=== PATIENT | female | born 1950 | race Caucasian/White ===

== ENCOUNTER → 2016-07-18 | Outpatient (CLI) | payer MEDICARE, OTHER ==
--- NOTE | 2016-07-19 14:52 | MAM ---
History: Well woman exam. Date of exam: 07/18/2016 Services provided: Bilateral full field digital screening mammography. CAD, the images were reviewed with R2 computer aided detection. FINDINGS: Glandular tissue is scattered glandular contour with increased mammographic density. Comparison with 2015 exam. No dominant mass, architectural distortion or clustered microcalcification. IMPRESSION: Benign exam Recommendation: Routine annual mammography BIRAD CATEGORY: 2 BENIGN Electronically signed by: Samantha Darling MD 07/19/2016 2:52 PM CDT Workstation: [id number]
== END | disposition home or self-care (01) ==
LOC: MAMMO 10:11
PROVIDERS: ATTEND Family Medicine
DX: Z12.31 Encounter for screening mammogram for malignant neoplasm of breast (principal)

== ENCOUNTER → 2016-12-10 | Outpatient (CLI) | payer MEDICARE, OTHER | END | disposition home or self-care (01) | LOC: LAB.O 16:32 | PROVIDERS: ATTEND Nurse Practitioner Family | DX: R41.0 Disorientation, unspecified (principal); R41.1 Anterograde amnesia ==

== ENCOUNTER → 2017-01-09 | Outpatient (CLI) | payer MEDICARE, OTHER | END | disposition home or self-care (01) | LOC: LAB.O 09:14 | PROVIDERS: ATTEND Orthopaedic Surgery | DX: Z01.818 Encounter for other preprocedural examination (principal) ==

== ENCOUNTER → 2017-01-19 | Outpatient (CLI) | payer MEDICARE, OTHER | END | disposition home or self-care (01) | LOC: GMAM 14:55 | PROVIDERS: ATTEND Family Medicine | DX: N39.0 Urinary tract infection, site not specified (principal) ==

== ENCOUNTER 2017-01-24 05:54 | Day surgery (SDC) | payer MEDICARE, OTHER ==
--- NOTE | 2017-01-23 13:44 | HP ---
CHIEF COMPLAINT: Left foot pain. HISTORY OF PRESENT ILLNESS: Ms. Ramos is a 66-year-old female with a history of pain in the left foot that is along the dorsum and the medial aspect. She has noticed some swelling in that area and wearing certain shoes causes irritation over the dorsum. She has had an x-ray which shows an osteophyte. We talked about the options for that and talked about the risks, benefits and alternatives for excision. She states she understands that. She has given informed consent for excision of the osteophyte. PAST SURGICAL HISTORY: 1. Cholecystectomy. 2. Carpal tunnel release. 3. Rotator cuff repair. 4. Oophorectomy. MEDICATIONS: None. ALLERGIES: SULFA. CODE STATUS: Full code. IMMUNIZATIONS: Up to date. SOCIAL HISTORY: The patient does not drink, smoke or use any illicit drugs. FAMILY HISTORY: None pertinent to today's complaint. REVIEW OF SYSTEMS: Negative except as indicated in the History of Present Illness. PHYSICAL EXAMINATION: VITAL SIGNS: Blood pressure 151/93. Pulse 100. Height 5'3". Weight 174. MENTAL STATUS: The patient is awake, alert, and is able to give a good history and participate in the physical. The patient is oriented to person, place and time. SKIN: Normal tone and turgor. HEENT: Normocephalic, atraumatic. Pupils equal, round and reactive. Mucosal membranes are moist. NECK: Normal range of motion. No thyromegaly, no lymphadenopathy. CHEST: Normal respiratory excursion. CARDIAC: Regular rate and rhythm. No murmurs, rubs or gallops. MUSCULOSKELETAL: She has an obvious osteophyte on the dorsum of the foot overlying the metatarsocuneiform joint. She has intact sensation throughout the foot. It is warm and well perfused. She has evidence of local irritation. There are no other skin changes. IMAGING: X-rays show osteophytes at the first metatarsocuneiform joint with diffuse arthritic changes in the midfoot. ASSESSMENT: 1. 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 PLAN: At this point, we are planning on excision of the osteophyte. We have discussed the risks, benefits, and alternatives to that and the patient has given informed consent. #[id number] [facility]
[2017-01-24] MEDS ORDERED: ceFAZolin SODIUM 1 GM VIAL ONE (08:22)
[2017-01-24] MEDS ORDERED: SODIUM CHL 0.9% 100ML MINI-BAG 100 ML IVPB ONE (08:22)
[2017-01-24] MEDS ORDERED: LACTATED RINGERS 1,000 ML ONE (08:22)
[2017-01-24] MEDS ORDERED: BUPIVACAINE 0.25% INJ 30 ML VIAL INJ ONE (09:02)
[2017-01-24] MEDS ORDERED: LIDOCAINE 1% 50 ML VIAL INJ ONE (09:02)
[2017-01-24] MEDS ORDERED: fentaNYL CITRATE INJ 50 MCG/ML AMP ONE (09:09)
[2017-01-24] MEDS ORDERED: LIDOCAINE 2 % GEL 5 ML TUBE TOP ONE (09:09)
[2017-01-24] MEDS ORDERED: PROPOFOL 200 MG/20 ML VIAL IV ONE (10:00)
[2017-01-24] MEDS: VANCOMYCIN HCL INJ 1,000 MG VIAL IVPB ONE ×2 (10:22→10:35)
[2017-01-24] MEDS: ceFAZolin SODIUM 1 GM VIAL ONE ×2 (10:22→10:35)
[2017-01-24] MEDS ORDERED: HYDROcodone 5MG/APAP 325MG 1 EA TAB ONE (11:33)
[2017-01-24] MEDS ORDERED: ONDANSETRON INJ 4 MG/2 ML VIAL ONE (12:09)
[2017-01-24] MEDS ORDERED: METOCLOPRAMIDE HCL INJ 10 MG/2 ML VIAL ONE (12:09)
[2017-01-24] MEDS ORDERED: DEXAMETHASONE INJ 10 MG/ML VIAL ONE (12:09)
[2017-01-24] MEDS ORDERED: PROMETHAZINE HCL INJ 25 MG/ML VIAL ONE (12:57)
[2017-01-24] MEDS ORDERED: SODIUM CHL 0.9% 50ML MIN-BAG+ 50 ML IVPB ONE (12:58)
[2017-01-24 14:47] VITALS: BP 136/73; TEMP 97.6; O2SAT 97
--- NOTE | 2017-01-25 08:08 | OP ---
DATE OF PROCEDURE: 01/24/17 PREOPERATIVE DIAGNOSIS: 1. Osteophyte of the right first metatarsocuneiform joint. POSTOPERATIVE DIAGNOSIS: 1. Osteophyte of the right first metatarsocuneiform joint. PROCEDURE: 1. Excision of osteophyte. SURGEON: Jaime Okeefe MD. COLORIST DYER: Levar Jhaveri CST, SA-C. ANESTHESIA: General anesthesia. COMPLICATIONS: None. FINDINGS: Osteophyte overlying the area of the first metatarsocuneiform joint. INDICATION: Ms. Ramos has a history of pain over the dorsum of the foot. This seemed to be local irritation caused by a bony prominence. This was causing difficulty with shoe wear secondary to the irritation. Because of the discomfort and disruption with her choice of shoe wear, she elected to undergo excision of the osteophyte. After discussing the risks, benefits and alternatives to that, she gave informed consent for that. PROCEDURE: The patient was brought to the Operating Room and placed in the supine position. General anesthesia was induced and the patient's leg was sterilely prepped and draped. Following prepping and draping, the area directly over the osteophyte was identified and longitudinal incision was made. Following that, dissection was carried down to the osteophyte taking care to preserve any cutaneous nerves. Using a rongeur, the osteophyte was removed. It was thoroughly palpated to ensure complete removal of the osteophyte. Following confirmation of removal, the wound was thoroughly irrigated and closed with Nylon suture. Sterile dressings were placed. The patient was awoken from anesthesia and taken to Recovery. POSTOPERATIVE INSTRUCTIONS: She will be weight-bearing as tolerated on postoperative day 0. She will followup with us in 2 days. #[id number] [facility]
== END 2017-01-24 14:10 | disposition home or self-care (01) ==
LOC: AMB 05:54
PROVIDERS: ATTEND Orthopaedic Surgery
DX: M25.774 Osteophyte, right foot (principal); I10 Essential (primary) hypertension; E11.9 Type 2 diabetes mellitus without complications; K21.9 Gastro-esophageal reflux disease without esophagitis; E66.9 Obesity, unspecified; G47.30 Sleep apnea, unspecified; Z88.2 Allergy status to sulfonamides; Z79.899 Other long term (current) drug therapy
CPT/HCPCS: 01470; 28045; 36416; 82948; J0690; J1100; J2405; J2550; J2765; J3010; J3370; J3490; J7050; J7120

== ENCOUNTER → 2017-02-02 | Outpatient (CLI) | payer MEDICARE, OTHER | END | disposition home or self-care (01) | LOC: GMAM 17:05 | PROVIDERS: ATTEND Family Medicine | DX: R50.9 Fever, unspecified (principal); R30.9 Painful micturition, unspecified ==

== ENCOUNTER → 2017-02-24 | Outpatient (CLI) | payer MEDICARE, OTHER ==
--- NOTE | 2017-02-24 17:18 | CT ---
EXAM DESCRIPTION: Abdomen/Pelvis w/o Contrast: Computed Tomography. CLINICAL HISTORY: KIDNEY STONE PROTOCOL] COMPARISON: None. TECHNIQUE: Spiral-axial scans at 5.0 mm intervals through the abdomen and pelvis. Coronal and sagittal 2.0mm reconstructions. No IV or oral contrast. Total Exam DLP: 771.93 mGy-cm. This exam was performed according to our departmental CT dose-optimization program which includes automated exposure control, adjustment of the mA and/or kV according to patient size and/or use of iterative reconstruction technique; to reduce radiation dose to as low as reasonably achievable (ALARA). FINDINGS: Kidneys and Ureters: Calcification in the distal right renal artery. 2 mm stone upper collecting system right kidney. Borderline hydronephrosis. No perinephric stranding. 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 Prominent bilateral renal pelvis or parapelvic cysts but no stones. No radiodense stones or hydronephrosis left kidney or perinephric stranding. Normal caliber of the bilateral ureters with no periureteral edema. Pelvic Organs: No radiodense stones in the urinary bladder. Retroverted small uterus with calcifications. No fluid in the cul-de-sac. Ovaries are not well seen. Bilateral radiodense material abutting the uterine horns. Lung and pleura bases: Negative. Coronary artery calcifications/stents.. Liver, spleen, stomach, and adrenal glands: Small hiatal hernia. Calcification in the spleen, long axis length 16 cm. Vascular calcifications. Low-density in the liver craniocaudal dimension 20.8 cm at the tip at the level of the medial right iliac crest. Medication in the stomach. Adrenal glands negative. Pancreas, Gallbladder, Ducts: Surgical clips gallbladder fossa. No fluid. Pancreas negative except for small fatty nodule abutting the head. Aorta: Diffuse atherosclerotic calcification mostly mid and distal with narrowing of the distal lumen. Calcification of the ostia of the SMA bilateral single renal arteries and FILEMON. Small Bowel: Negative. Terminal Ileum/Cecum: Normal caliber. Appendix not seen. Normal density of the surrounding fat. Colon: Diffuse fecal matter from the descending colon to the proximal rectosigmoid. Minimal redundancy of the sigmoid colon. Mesentery: No fatty stranding fascial thickening free fluid or free air. Spine and Bony Pelvis: Both levels of spondylosis thoracic and upper lumbar spine. Desiccated discs with bulging lower lumbar spine bilateral L5-S1 significant foraminal narrowing. Abdominal Wall/Back Soft Tissues: Minimal fatty diastases at the umbilicus but no bowel involved. IMPRESSION: 1. Very small radiodense stone in the upper collecting system of the right kidney, which is partially duplicated. Trace or minimal hydronephrosis right kidney. No perinephric fat stranding. No definite stone in the renal pelvis or ureter. Bilateral renal pelvis are prominent. No hydronephrosis, radiodense stone, or perinephric stranding left kidney. Left ureter are unremarkable. No radiodense stones in the urinary bladder. 2. Splenomegaly with homogeneous density. Hepatomegaly and possible steatosis. No ascites. 3. Retroverted uterus. Ovaries not well visualized. No fluid in the cul-de-sac. 4. Moderate atherosclerotic involvement of the aorta with narrowing of the distal lumen. Correlate for lower extremity PVD. 5. Thoracolumbar spondylosis. Significant bilateral L5-S1 foraminal narrowing. Constipation of the colon. Electronically signed by: Levar Martines MD 02/24/2017 5:16 PM [facility]
== END | disposition home or self-care (01) ==
LOC: CT 09:30
PROVIDERS: ATTEND Family Medicine
DX: R31.21 Asymptomatic microscopic hematuria (principal); N10 Acute pyelonephritis

== ENCOUNTER → 2017-03-03 | Outpatient (CLI) | payer MEDICARE, OTHER ==
--- NOTE | 2017-03-03 13:43 | US ---
EXAM DESCRIPTION: Abdomen,Limited: Ultrasound. CLINICAL HISTORY: 66 years Female, ACUTE PYELONEPHRITIS, SPLENOMEGALY, HEPATOMEGALY. Cholecystectomy. COMPARISON: None. TECHNIQUE: Standard transabdominal scanning: Two-dimensional and Doppler modes. FINDINGS: Increased echogenicity of the pancreas with normal size. Duct not well seen. Increased echogenicity of the entire liver. Right lobe 16.8 cm craniocaudal axis. Minimal intrahepatic biliary dilatation. Capsule smooth where seen. No ascites. Portal venous flow hepatopedal. Gallbladder surgically absent. No fluid in the gallbladder fossa or Morison's pouch. Common bile duct caliber 7 mm. Right kidney 10.9 cm long axis. Normal echogenicity of the cortex with mid renal cortical thickness 12 mm. Inferior anechoic cyst with well-defined malhotra and posterior enhancement seen on the admission measuring 3.0 x 1.8 cm and not vascular. No hydronephrosis or perinephric fluid. Spleen normal echogenicity, 15.6 cm long axis. No fluid in the splenorenal fossa. Left kidney was not imaged. Abdominal aorta was not imaged. IMPRESSION: 1. Steatosis of the liver with mild hepatomegaly. No ascites. Minimal dilation of the intrahepatic ducts which is not uncommon with cholecystectomy. Common bile duct also minimally dilated. Normal vascularity of the liver. 2. Splenomegaly with normal echogenicity. No ascites. Left kidney and abdominal aorta were not imaged. 3. Steatosis of the pancreas. 4. Right kidney with minimal cortical thickening. 3 cm cyst. Otherwise unremarkable. Electronically signed by: Levar Martines MD 03/03/2017 1:42 PM [facility] [employer]
== END | disposition home or self-care (01) ==
LOC: US 09:00
PROVIDERS: ATTEND Family Medicine
DX: R16.0 Hepatomegaly, not elsewhere classified (principal); R16.1 Splenomegaly, not elsewhere classified

== ENCOUNTER → 2017-03-06 | Outpatient (CLI) | payer MEDICARE, OTHER | END | disposition home or self-care (01) | LOC: GMAM 14:50 | PROVIDERS: ATTEND Family Medicine | DX: K76.0 Fatty (change of) liver, not elsewhere classified (principal); N39.0 Urinary tract infection, site not specified; R16.0 Hepatomegaly, not elsewhere classified; R93.3 Abnormal findings on diagnostic imaging of other parts of digestive tract ==

== ENCOUNTER → 2017-03-28 | Outpatient (CLI) | payer MEDICARE, OTHER | LOC: GMAM 11:39 | PROVIDERS: ATTEND Family Medicine | DX: R94.6 Abnormal results of thyroid function studies (principal); E03.8 Other specified hypothyroidism ==

== ENCOUNTER → 2017-03-29 | Outpatient (CLI) | payer MEDICARE, OTHER | LOC: GMAM 10:57 | PROVIDERS: ATTEND Family Medicine | DX: R82.90 Unspecified abnormal findings in urine (principal); R82.71 Bacteriuria ==

== ENCOUNTER → 2017-06-12 | Outpatient (CLI) | payer MEDICARE, OTHER ==
--- NOTE | 2017-06-12 12:39 | RAD ---
EXAM DESCRIPTION: Foot,Left 3 Views CLINICAL HISTORY: 66 years, Female, FOOT PAIN COMPARISON: None TECHNIQUE: AP, lateral, and oblique views of the left foot FINDINGS: Bones appear osteopenic with prominent trabecular pattern. Degenerative changes are prominent at the first metatarsal phalangeal joint with degenerative narrowing narrowing of the joints of the toes. Large osteophytes of the dorsal calcaneus and plantar aspect. There is calcification of the plantar aponeurosis proximally. There is no other bone, joint, or soft tissue abnormality observed. There is no radiopaque foreign body. No fracture of the talus or calcaneus on the lateral view. IMPRESSION: Negative for fracture or dislocation. Degenerative changes as described. Electronically signed by: Joshua Cuellar MD 06/12/2017 12:37 PM CDT
== END ==
LOC: RAD 09:11
PROVIDERS: ATTEND Orthopaedic Surgery
DX: M79.672 Pain in left foot (principal)

== ENCOUNTER 2017-06-21 05:45 | Day surgery (SDC) | payer MEDICARE, OTHER ==
[2017-06-21] MEDS ORDERED: LACTATED RINGERS 1,000 ML ONE (06:21)
--- NOTE | 2017-06-21 08:48 | OP ---
DATE OF PROCEDURE: 06/21/17 PREPROCEDURE DIAGNOSIS: 1. Average risk colorectal cancer screening. POSTPROCEDURE DIAGNOSIS: 1. Colonic polyps. 2. Internal hemorrhoids. PROCEDURE: 1. Colonoscopy with polypectomy. SURGEON: Felice Lemos MD. SEDATION: Monitored anesthesia care. ESTIMATED BLOOD LOSS: Less than 5 mL. PROCEDURE: Informed consent was obtained prior to sedation. The preprocedure cardiopulmonary assessment was satisfactory. The patient was brought to the Endoscopy Suite and placed in the left lateral decubitus position. The patient was then sedated by the anesthesia team. Digital rectal and perianal exams showed some external hemorrhoids. The tip of the Olympus colonoscope was inserted into the rectum and advanced under direct visualization to the terminal ileum. Preparation of the colon was good. Upon reaching the terminal ileum, the endoscope was slowly withdrawn from the patient with careful attention paid to the entire colonic mucosa for the identification of any flat polyps or small vascular lesions. In the cecum and ascending colon, there were a total of four polyps which were sessile, ranging in size from 3 to 5 mm. These were all resected with cold snare polypectomy and retrieved for pathology analysis. The endoscope was slowly withdrawn into the rectum where a retroflexed view of the anal verge showed small internal hemorrhoids. The endoscope was then withdrawn from the patient and the procedure terminated. RECOMMENDATION: 1. Discharge the patient home with escort. 2. Resume regular diet. 3. Continue present medications. 4. Followup pathology results. 5. Surveillance colonoscopy due in three years' time. #[id number] [facility]
[2017-06-21] MEDS ORDERED: PROPOFOL 200 MG/20 ML VIAL IV ONE (10:00)
[2017-06-21] MEDS ORDERED: LIDOCAINE 1% 10 ML VIAL INJ ONE (10:00)
[2017-06-21 13:30] VITALS: O2SAT 99
[2017-06-21 13:31] VITALS: BP 118/74; TEMP 97.1
== END 2017-06-21 10:30 | disposition home or self-care (01) ==
LOC: AMB 05:45
PROVIDERS: ATTEND Internal Medicine Gastroenterology
DX: Z12.11 Encounter for screening for malignant neoplasm of colon (principal); D12.0 Benign neoplasm of cecum; D12.3 Benign neoplasm of transverse colon; K64.8 Other hemorrhoids; K21.9 Gastro-esophageal reflux disease without esophagitis; I10 Essential (primary) hypertension; K44.9 Diaphragmatic hernia without obstruction or gangrene; K22.70 Barrett's esophagus without dysplasia; E11.9 Type 2 diabetes mellitus without complications; Z88.2 Allergy status to sulfonamides; Z79.899 Other long term (current) drug therapy
CPT/HCPCS: 00812; 36416; 45385; 82948; 88305; J3490; J7120

== ENCOUNTER 2019-05-14 20:52 | Emergency (ER) | payer MEDICARE, OTHER ==
[2019-05-14] MEDS ORDERED: traMADol HCL 50 MG TAB PO ONE (21:17)
[2019-05-14] MEDS ORDERED: ONDANSETRON ODT 8 MG TAB SL ONE (21:17)
--- NOTE | 2019-05-14 21:45 | RAD ---
EXAM DESCRIPTION: Femur,Right CLINICAL HISTORY: 68 years Female, right thigh pain. COMPARISON: CT abdomen and pelvis dated February 24, 2017. FINDINGS/IMPRESSION: No fracture or dislocation. Diffuse osteopenia. Right hip osteoarthritis. Mild medial knee compartment narrowing and osteophytes. Soft tissues are within normal limits. Vascular calcifications. Electronically signed by: Jose Lozano DO 05/14/2019 9:43 PM CDT
--- NOTE | 2019-05-14 21:57 | ED.PDOC ---
History of Present Illness - General Chief Complaint: Lower Extremity Injury Stated Complaint: right leg pain Time Seen by Provider: 05/14/19 21:11 Source: patient, RN notes reviewed, Vital Signs reviewed, family - Daughter Exam Limitations: no limitations - History of Present Illness Initial Comments: Patient is a 68-year-old white female who presents with complaints of right thigh pain. This started 2 to 3 days ago. No history of trauma. Patient believes her thigh is slightly swollen. The pain is throbbing in nature. Worse with palpation. Improved with rest. Patient denies any cold numbness to her extremity. The pain does not radiate. Occurred: last week Pain - Lower Extremity: moderate: Right Thigh/Hip Method of Injury: unknown Improving Factors: rest Worsening Factors: movement, other - Patient Allergies/Adverse Reactions: Allergies Sulfa Antibiotics Allergy (Verified 05/25/14 01:19) Home Medications: Ambulatory Orders Amlodipine Besylate [Norvasc] 2.5 mg PO DAILY 05/29/14 Atorvastatin Calcium [Lipitor] 20 mg PO DAILY 05/29/14 Calcium Carbonate-Vitamin D [Calcium 500/D 500-200 mg-Unit] 1 tab PO BID 05/29/14 Celecoxib [Celebrex] 200 mg PO DAILY 05/29/14 Glipizide [Glucotrol Xl] 2.5 mg PO BID 05/29/14 Multiple Vitamin [Multi Vitamin Daily] 1 tab PO DAILY 05/29/14 Sitagliptin-Metformin HCl [Janumet] tab PO BID 05/29/14 Baclofen 10 mg PO BEDTIME 01/24/17 Fluticasone Propionate (Nasal) [Flonase] 1 - 2 puff NA DAILY 01/24/17 Pantoprazole Sodium 40 mg PO DAILY 01/24/17 Review of Systems - Review of Systems Constitutional: States: no symptoms reported, see HPI. Denies: chills, fever EENTM: States: no symptoms reported. Denies: eye pain, blurred vision, double vision Respiratory: States: no symptoms reported. Denies: cough, short of breath, wheezing Cardiology: States: no symptoms reported. Denies: chest pain, palpitations, syncope Gastrointestinal/Abdominal: States: no symptoms reported. Denies: abdominal pain, nausea, vomiting Genitourinary: States: no symptoms reported. Denies: discharge, frequency Musculoskeletal: States: see HPI, muscle pain - Right thigh, muscle stiffness - Right thigh. Denies: back pain Skin: States: no symptoms reported. Denies: change in color, rash Neurological: States: no symptoms reported. Denies: headache, numbness, paresthesia, tingling, weakness Endocrine: States: no symptoms reported. Denies: excessive sweating, intolerance to cold, intolerance to heat, increased hunger, increased thirst, increased urine Hematologic/Lymphatic: States: no symptoms reported All other Systems: No Change from Baseline Past Medical History (General) - Patient Medical History Hx Seizures: No Hx Stroke: No Hx Dementia: No Hx Asthma: No Hx of COPD: No Hx Cardiac Disorders: No Hx Congestive Heart Failure: No Hx Pacemaker: No Hx Hypertension: Yes Hx Thyroid Disease: Yes - just dx with goiter Hx Diabetes: Yes Hx Gastroesophageal Reflux: No Hx Renal Disease: No Hx Cancer: No Hx of HIV: No Hx Hepatitis C: No Hx MRSA: No Surgical History: cholecystectomy, other - Vaccination History Hx Tetanus, Diphtheria Vaccination: No Hx Influenza Vaccination: Yes Hx Pneumococcal Vaccination: Yes Immunizations Up to Date: Yes - Social History Hx Tobacco Use: No Hx Chewing Tobacco Use: No Hx Alcohol Use: No Hx Substance Use: No Hx Substance Use Treatment: No Hx Depression: No Feels Threatened In Home Enviroment: No Feels Threatened In a Relationship: No Hx Physical Abuse: No Hx Emotional Abuse: No Hx Suspected Abuse: No - Activities of Daily Living Hospice Agency (if applicable):: None - Female History Patient is a Female of Child Bearing Age (10 -59 yrs old): No Patient : No Family Medical History - Family History Mother Family History: Unknown Physical Exam - Physical Exam General Appearance: Alert, Anxious, Obvious distress, Well Developed, Well Groomed, Well Hydrated, Well Nourished Eyes, Ears, Nose, Throat: PERRL/EOMI, normal ENT inspection, pharynx normal Neck: non-tender, full range of motion, supple, normal inspection Cardiovascular/Respiratory: no M/R/G, normal peripheral pulses, no JVD, normal breath sounds, no respiratory distress, tachycardia Gastrointestinal/Abdominal: non-tender, no organomegaly Back: normal inspection, no CVA tenderness, no vertebral tenderness Thigh/Hip: no evidence of injury, normal ROM, pain, soft tissue tenderness, swelling - Minimal Leg: normal inspection, non-tender, no evidence of injury, normal ROM Knee: normal inspection, non-tender, no evidence of injury, normal ROM Ankle: normal inspection, non-tender, no evidence of injury, normal ROM Foot: normal inspection, non-tender, no evidence of injury, normal ROM Neuro/Tendon: normal sensation, normal motor functions, normal tendon functions, responds to pain Mental Status: alert, oriented x 3 Skin: normal color, warm/dry Progress - Progress Progress: Differential diagnosis: Femur fracture, hip strain, DVT, Lumbar radiculopathy among others. 05/14/19 23:10 Patient's heart rate has dropped to under 100 now. X-rays are negative. Labs are unremarkable. I do not have ultrasound available to rule out DVT at this time. Patient and her daughter do not want transferred to [place] for an ultrasound. Plan on return in a.m. for a ultrasound of the right thigh to rule out DVT. I suspect this may be a lumbar radiculopathy. I discussed this plan of care with the patient and her daughter and they voiced understanding and agreement with the plan of care. Ran Castelan M.D. #[id number] - Results/Orders Results/Orders: Laboratory Results - last 24 hr 05/14/19 05/14/19 05/14/19 21:19 21:19 22:05 WBC 4.3 L RBC 3.98 L Hgb 10.8 L Hct 32.5 L MCV 81.6 MCH 27.2 MCHC 33.4 RDW 15.7 H Plt Count 133 MPV 8.3 Absolute Neuts (auto) 2.20 Absolute Lymphs (auto) 1.60 Absolute Monos (auto) 0.40 Absolute Eos (auto) 0.10 Absolute Basos (auto) 0.00 Neutrophils % 51.9 Lymphocytes % 36.9 Monocytes % 8.9 Eosinophils % 1.2 Basophils % 1.1 Sodium 138 Potassium 3.9 Chloride 105 Carbon Dioxide 25 Anion Gap 11.9 L BUN 21 H Creatinine 1.07 BUN/Creatinine Ratio 19.6 Random Glucose 203 H Serum Osmolality 284.5 Calcium 9.4 Total Bilirubin 1.2 H AST 27 ALT 25 Alkaline Phosphatase 55 Serum Total Protein 7.3 Albumin 4.0 Globulin 3.3 Albumin/Globulin Ratio 1.2 Urine Color Yellow Urine Appearance Clear Urine pH 6.5 Ur Specific Bruno 1.020 Urine Protein Negative Urine Glucose (UA) Negative Urine Ketones Negative Urine Blood Negative Urine Nitrite Negative Urine Bilirubin Negative Urine Urobilinogen 0.2 Ur Leukocyte Esterase Trace H Urine RBC 0 Urine WBC 0-1 Ur Epithelial Cells 0 Urine Bacteria 0 EXAM DESCRIPTION: Femur,Right CLINICAL HISTORY: 68 years Female, right thigh pain. COMPARISON: CT abdomen and pelvis dated February 24, 2017. FINDINGS/IMPRESSION: No fracture or dislocation. Diffuse osteopenia. Right hip osteoarthritis. Mild medial knee compartment narrowing and osteophytes. Soft tissues are within normal limits. Vascular calcifications. Electronically signed by: Jose Lozano DO 05/14/2019 9:43 PM Departure - Departure Clinical Impression: Lumbar radiculopathy Thigh pain, musculoskeletal Qualifiers: Laterality: right Qualified Code(s): M79.651 - Pain in right thigh Time of Disposition: 23:12 Disposition: Discharge to Home or Self Care Condition: Good Departure Forms: ED Discharge - Pt. Copy, Patient Portal Self Enrollment Instructions: DI for Leg Pain Diet: resume usual diet Activity: walking as tolerated Home Medications: Ambulatory Orders Amlodipine Besylate [Norvasc] 2.5 mg PO DAILY 05/29/14 Atorvastatin Calcium [Lipitor] 20 mg PO DAILY 05/29/14 Calcium Carbonate-Vitamin D [Calcium 500/D 500-200 mg-Unit] 1 tab PO BID 05/29/14 Celecoxib [Celebrex] 200 mg PO DAILY 05/29/14 Glipizide [Glucotrol Xl] 2.5 mg PO BID 05/29/14 Multiple Vitamin [Multi Vitamin Daily] 1 tab PO DAILY 05/29/14 Sitagliptin-Metformin HCl [Janumet] tab PO BID 05/29/14 Baclofen 10 mg PO BEDTIME 01/24/17 Fluticasone Propionate (Nasal) [Flonase] 1 - 2 puff NA DAILY 01/24/17 Pantoprazole Sodium 40 mg PO DAILY 01/24/17 Additional Instructions: Patient to return in a.m. for a right lower extremity DVT ultrasound.
[2019-05-14 22:20] VITALS: O2SAT 99
[2019-05-14] MEDS ORDERED: traMADol HCL 50 MG (ER DISP) # 6 TABS PO ONE (23:13)
[2019-05-14 23:29] VITALS: BP 131/88; TEMP 97.4
== END 2019-05-14 23:29 | disposition home or self-care (01) ==
LOC: ER 20:52
DX: M79.651 Pain in right thigh (principal); M54.16 Radiculopathy, lumbar region; M85.80 Other specified disorders of bone density and structure, unspecified site; M16.11 Unilateral primary osteoarthritis, right hip; I10 Essential (primary) hypertension; E11.9 Type 2 diabetes mellitus without complications; Z79.899 Other long term (current) drug therapy; Z79.84 Long term (current) use of oral hypoglycemic drugs; Z88.0 Allergy status to penicillin

== ENCOUNTER → 2019-05-15 | Outpatient (CLI) | payer MEDICARE, OTHER ==
--- NOTE | 2019-05-15 10:44 | US ---
EXAM DESCRIPTION: Venous,Lower Extremity RT: ULTRASOUND. CLINICAL HISTORY: THIGH PAIN. Right. COMPARISON: None Available. TECHNIQUE: Auguste-scale and doppler sonographic evaluation of the deep venous system of the right lower extremity. FINDINGS: Doppler evaluation shows normal color flow and normal phasicity and augmentation of the right common femoral vein, femoral vein, popliteal vein, greater saphenous vein, junction with the CFV. Also normal color flow and normal phasicity and augmentation of the peroneal, and posterior tibial vein. The right lower extremity deep veins were completely compressible; normal occlusion with transducer pressure. Auguste-scale survey showed no echogenic thrombus within these veins. IMPRESSION: 1. Duplex ultrasound evaluation of the right lower extremity deep venous system showing no evidence of thrombosis. Electronically signed by: Levar Martines MD 05/15/2019 10:42 AM CDT
== END ==
LOC: US 09:26
PROVIDERS: ATTEND Emergency Medicine
DX: M79.604 Pain in right leg (principal)